=== PATIENT | female | born 1965 | race Two or more races ===

== ENCOUNTER 2022-09-04 11:47 | Outpatient (CLI) | payer OTHER | END 2022-09-04 11:58 | disposition home or self-care (01) | LOC: LAB 11:47 | PROVIDERS: ATTEND Orthopaedic Surgery | DX: M85.9 Disorder of bone density and structure, unspecified (principal); E83.42 Hypomagnesemia; E56.1 Deficiency of vitamin K ==

== ENCOUNTER 2023-11-22 11:10 | Outpatient (CLI) | payer OTHER ==
[2023-11-22 12:41] LABS: CREATININE URINE RANDOM 89.8 MG/DL (30-125)
[2023-11-22 12:55] LABS: ALBUMIN 4.4 gm/dL (3.4-5.0); CALCIUM 9.9 mg/dL (8.5-10.1); CREATININE SERUM 0.57 mg/dL (0.55-1.02); GFR 109.72; MAGNESIUM 2.2 mg/dL (1.8-2.4); PHOSPHOROUS 3.4 mg/dL (2.5-4.9); POTASSIUM 4.17 mEq/L (3.5-5.1)
[2023-11-22 12:58] LABS: CHOL HDL RATIO 2.4 (0-5.0)
== END 2023-11-22 11:20 | disposition home or self-care (01) ==
LOC: LAB 11:10
PROVIDERS: ATTEND Orthopaedic Surgery
DX: E55.9 Vitamin D deficiency, unspecified (principal); M85.9 Disorder of bone density and structure, unspecified; E56.1 Deficiency of vitamin K; N30.00 Acute cystitis without hematuria; E78.00 Pure hypercholesterolemia, unspecified